=== PATIENT | female | born 1955 | race Caucasian/White ===

== ENCOUNTER → 2025-10-16 14:37 | Outpatient (BNVA) | payer BC, SELFPAY | PROVIDERS: PCP Family Medicine; Visit Provider Family Medicine | DX: I10 Essential (primary) hypertension (principal); I35.1 Nonrheumatic aortic (valve) insufficiency; E03.8 Other specified hypothyroidism; K21.9 Gastro-esophageal reflux disease without esophagitis; G60.9 Hereditary and idiopathic neuropathy, unspecified | CPT/HCPCS: 80053; 83735; 84439; 84443; 85025 ==